=== PATIENT | female | born 1990 | race Caucasian/White ===

== ENCOUNTER 2018-07-03 20:47 | Emergency (ER) | payer SELFPAY ==
[~2018-07-03] VITALS: Ht 154.9 cm; Wt 59.6 kg
[2018-07-03 20:54] VITALS: BP 127/78
--- NOTE | 2018-07-03 20:59 | NUR ---
TO LOBBY , A/W CHASE TREVINO, DIA ERMD NOTED
--- NOTE | 2018-07-03 22:41 | NUR ---
PT AMBULATED TO ER BED 08
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
[2018-07-03] MEDS ORDERED: KETOROLAC 60 MG/2 ML VIAL IM ONE (23:55)
[2018-07-04 00:20] VITALS: BP 127/78
--- NOTE | 2018-07-04 00:20 | NUR ---
Patient discharged with v/s stable. Written and verbal after care instructions given and explained. Patient alert, oriented and verbalized understanding of instructions. Ambulatory with steady gait. All questions addressed prior to discharge. ID band removed. Patient advised to follow up with PMD. Rx of MOTRIN, ZOFRAN given. Patient educated on indication of medication including possible reaction and side effects. Opportunity to ask questions provided and answered.
== END 2018-07-04 00:20 | disposition home or self-care (01) ==
LOC: MED 20:47
DX: M54.9 Dorsalgia, unspecified (principal); M54.2 Cervicalgia; R51 Headache; V89.2XXA Person injured in unspecified motor-vehicle accident, traffic, initial encounter; Y93.89 Activity, other specified; Y92.89 Other specified places as the place of occurrence of the external cause; Y99.8 Other external cause status
CPT/HCPCS: 72040; 81025; 96372; 99283; J1885

== ENCOUNTER 2020-01-15 12:04 | Emergency (ER) | payer MEDICAID ==
[~2020-01-15] VITALS: Ht 154.9 cm; Wt 61.5 kg
[~2020-01-15 12:04] MED LIST: ACET-5629 PO; LEVO750T51 PO; ONDA4TAB PO
[2020-01-15 12:13] VITALS: BP 96/56
--- NOTE | 2020-01-15 12:17 | NUR ---
PT AMB TO BED 12
[2020-01-15] MEDS ORDERED: HYDROcodone/APAP 5/325 MG 1 TAB TAB PO ONE (12:55)
[2020-01-15] MEDS ORDERED: ONDANSETRON 4 MG ODT PO ONE (12:55)
--- NOTE | 2020-01-15 13:37 | NUR ---
29 YEAR OLD FEMALE COMPLAINS OF VAGINAL PAIN AND DISCHARGE X 5 DAYS. PT ALSO COMPLAINS OF RASH IN VAGINAL AREA. PT STATES THAT SHE HAD SURGERY FOR ENDOMETRIOSIS AND THAT AFTER THE BLEEDING OCCURED, THE DISCHARGE STARTED. PT AOX4, BREATHING EVEN AND UNLABROED, SKIN WARM AND DRY. BED IN LOWEST POSITION, LOCKED, BED RAIL UPX1. PMH - ENDOMETRIOSIS ALLERGIES - NKA
--- NOTE | 2020-01-15 14:05 | NUR ---
VAGINAL SWAB BY DR COLLINS. LETTY ESPINAL, [facility].
--- NOTE | 2020-01-15 14:10 | NUR ---
VAGINAL SWAB SENT TO LAB
[2020-01-15 15:00] VITALS: BP 97/57
== END 2020-01-15 15:00 | disposition home or self-care (01) ==
LOC: MED 12:04
DX: N89.8 Other specified noninflammatory disorders of vagina (principal); B37.9 Candidiasis, unspecified; N80.9 Endometriosis, unspecified; Z79.899 Other long term (current) drug therapy
CPT/HCPCS: 81002; 81025; 87210; 99283; Q0162

== ENCOUNTER 2021-09-13 17:20 | Observation (INO) | payer OTHER ==
[~2021-09-13] VITALS: Ht 154.9 cm; Wt 67.1 kg
[2021-09-13] MEDS ORDERED: METOCLOPRAMIDE 10 MG/2 ML INJ VIAL IVP PRN (18:05)
[2021-09-13] MEDS ORDERED: ONDANSETRON 4 MG/2 ML VIAL IVP PRN (18:05)
[2021-09-13] MEDS ORDERED: PANTOPRAZOLE 40 MG INJ VIAL IVP SCH (18:05)
[2021-09-13] MEDS ORDERED: LACTATED RINGERS 1,000 ML IV SCH (18:45)
[2021-09-13 19:03] LABS: BASOPHILS % (AUTO) 0.3 % (0.0-2.0); EOSINOPHILS # (AUTO) 0.1 K/uL (0-0.4); EOSINOPHILS % (AUTO) 1.3 % (0.0-4.0); HEMATOCRIT 36.1 % (36-48); HEMOGLOBIN 12.4 g/dL (12.0-16.0); LYMPHOCYTES # (AUTO) 1.3 K/uL (2.5-16.5); LYMPHOCYTES % (AUTO) 18.1 % (20.5-51.1); MEAN CORPUSCULAR HEMOGLOBIN 31 pg (27-31); MEAN CORPUSCULAR HGB CONC 34 g/dL (33-37); MEAN CORPUSCULAR VOLUME 89.1 fL (80-94); MONOCYTES # (AUTO) 0.6 K/uL (0.8-1.0); MONOCYTES % (AUTO) 8.1 % (1.7-9.3); NEUTROPHILS % (AUTO) 72.2 % (42.2-75.2); PLATELET COUNT (AUTO) 266 K/uL (140-450); RED BLOOD CELL COUNT(AUTO) 4.05 MIL/uL (4.20-5.40); RED CELL DISTRIBUTION WIDTH 13.1 % (11.6-13.7); WHITE BLOOD COUNT (AUTO) 6.9 K/uL (4.8-10.8)
[2021-09-13 19:04] VITALS: BP 95/50
[2021-09-13] MEDS ORDERED: ACETAMINOPHEN 325 MG TAB PO PRN (19:20)
[2021-09-13 19:25] LABS: ALBUMIN 2.8 g/dL (3.4-5.0); ANION GAP 11.2 (8-16); CREATININE 0.5 mg/dL (0.6-1.3); POTASSIUM 4.2 mmol/L (3.5-5.1); TOTAL BILIRUBIN 0.6 mg/dL (0.0-1.0)
[2021-09-13] MEDS ORDERED: ACETAMINOPHEN 325 MG TAB ONE (19:28)
== END 2021-09-13 22:50 | disposition home or self-care (01) ==
LOC: MLD 17:20
PROVIDERS: ADMIT Obstetrics & Gynecology; ATTEND Obstetrics & Gynecology
DX: O21.2 Late vomiting of pregnancy (principal); Z20.822 Contact with and (suspected) exposure to COVID-19; O26.892 Other specified pregnancy related conditions, second trimester; R10.9 Unspecified abdominal pain; R12 Heartburn; Z3A.22 22 weeks gestation of pregnancy
CPT/HCPCS: 36415; 59025; 80053; 81000; 85025; 87426; 96361; 96374; 96375; C9113; G0378; J2405; J2765; J7120